=== PATIENT | male | born 1955 | race African-American/Black ===

== ENCOUNTER → 2017-08-09 | Outpatient (CLI) | payer OTHER ==
--- NOTE | 2017-08-09 14:34 | KCIC ---
Thoracic spine, 3 views, 08/09/2017: HISTORY: Worsening upper back pain The thoracic vertebral heights are well-maintained. There are moderate scattered marginal spurs. The paraspinous soft tissues are unremarkable. IMPRESSION: 1. Moderate marginal spurring. 2. No acute bony abnormality is detected. Electronically signed by: Nitesh Lizama MD (08/09/2017 2:30 PM) [facility]
--- NOTE | 2017-08-09 14:36 | KCIC ---
Cervical spine, 5 views, 08/09/2017: HISTORY: Pain There is mild to moderate marginal spurring in the lower cervical spine. There are moderate degenerative changes involving multiple facet joints bilaterally. There appears to be fusion of several of the facet joints on the upper left. There is mild foraminal narrowing at multiple levels bilaterally due to the spurring. No fracture or dislocation is identified. No prevertebral soft tissue swelling is evident. IMPRESSION: 1. Moderate multilevel degenerative change as described above. MR scanning may be useful for further evaluation, if clinically indicated. 2. No acute bony abnormality is detected. Electronically signed by: Nitesh Lizama MD (08/09/2017 2:32 PM) [facility]
== END | disposition home or self-care (01) ==
LOC: KCIC 13:50
PROVIDERS: ATTEND Internal Medicine
DX: M46.04 Spinal enthesopathy, thoracic region (principal); M47.892 Other spondylosis, cervical region
CPT/HCPCS: 72050; 72072

== ENCOUNTER → 2017-08-22 | Outpatient (CLI) | payer OTHER ==
--- NOTE | 2017-08-22 14:21 | RAD ---
EXAM: Renal sonogram. HISTORY: Polyuria. TECHNIQUE: Sonographic imaging of the kidneys and bladder was performed. COMPARISON: None. FINDINGS: The right kidney measures 12.0 cm bunh-qe-oopu and the left kidney measures 12.4 cm twyl-uk-yhog. There is a 2.0 cm simple appearing cyst within the lower pole of the left kidney. No solid lesion is seen. There is no hydronephrosis. There is mild prostatomegaly, with a volume of 135 cc. The post void bladder residual 17 cc. IMPRESSION: 1. 2.0 cm left renal cyst. 2. Mild prostatomegaly. 3. Minimal post void bladder residual.
== END | disposition home or self-care (01) ==
LOC: US 13:35
PROVIDERS: ATTEND Internal Medicine
DX: N41.0 Acute prostatitis (principal); R35.8 Other polyuria; N28.1 Cyst of kidney, acquired; N40.0 Benign prostatic hyperplasia without lower urinary tract symptoms; N32.9 Bladder disorder, unspecified
CPT/HCPCS: 76770

== ENCOUNTER → 2018-04-30 | Outpatient (CLI) | payer OTHER | END | disposition home or self-care (01) | LOC: RAD 16:44 | DX: M16.12 Unilateral primary osteoarthritis, left hip (principal); M47.897 Other spondylosis, lumbosacral region | CPT/HCPCS: 72100; 73502 ==

== ENCOUNTER → 2018-06-06 | Outpatient (CLI) | payer OTHER | END | disposition home or self-care (01) | LOC: KCIC 08:57 | DX: M25.561 Pain in right knee (principal); M25.562 Pain in left knee | CPT/HCPCS: 73562 ==

== ENCOUNTER → 2020-11-23 | Outpatient (CLI) | payer MEDICARE, OTHER ==
--- NOTE | 2020-11-23 17:29 | KCIC ---
EXAM: Chest, 2 views. HISTORY: Cough. Dyspnea. COMPARISON: None. FINDINGS: 2 views of the chest are obtained. There is no infiltrate, pleural effusion or pneumothorax . The heart is normal in size. IMPRESSION: No acute pulmonary finding. Electronically signed by: Tanisha Hinds MD (11/23/2020 5:27 PM) [id number]
== END ==
LOC: KCIC 15:15
PROVIDERS: ATTEND Internal Medicine
DX: R05 Cough (principal); R06.00 Dyspnea, unspecified; R07.9 Chest pain, unspecified
CPT/HCPCS: 71046

== ENCOUNTER → 2021-04-02 | Outpatient (CLI) | payer MEDICARE ==
--- NOTE | 2021-04-02 15:52 | KCIC ---
Chest, PA and Lateral: Technique: PA and lateral views of the chest were obtained. History: Exacerbation of asthma. Comparison: None. Findings: The cardiomediastinal silhouette grossly appears unremarkable. Mild bibasilar lung airspace opacities . IMPRESSION: Mild bibasilar lung atelectasis or infiltrates. Electronically signed by: Ric Bear MD (04/02/2021 3:50 PM) [id number]
== END ==
LOC: KCIC 13:05
PROVIDERS: ATTEND Internal Medicine
DX: J45.901 Unspecified asthma with (acute) exacerbation (principal)
CPT/HCPCS: 71046

== ENCOUNTER → 2021-04-23 | Outpatient (CLI) | payer MEDICARE ==
--- NOTE | 2021-04-23 12:40 | CARD ---
MR#: [id number] Date of Study: 04/23/2021 Ordering Physician: ANJEL BAILEY, Referring Physician: ANJEL BAILEY, Tech: Kay Moser [facility] [place] APPROVED REPORT EXAM: Two-dimensional and M-mode echocardiogram with Doppler and color Doppler. Other Information Quality : GoodHR: 56bpm Rhythm : NSR INDICATION Dyspnea 2D DIMENSIONS RVDd3.7 (2.9-3.5cm)Left Atrium(2D)3.6 (1.6-4.0cm) IVSd0.8 (0.7-1.1cm)Aortic Root(2D)4.1 (2.0-3.7cm) LVDd4.9 (3.9-5.9cm)LVOT Diameter2.3 (1.8-2.4cm) PWd0.8 (0.7-1.1cm)LVDs3.2 (2.5-4.0cm) FS (%) 34.3 %SV72.5 ml LVEF(%)63.1 (>50%) Aortic Valve AoV Peak Adan.146.2cm/sAoV VTI31.6cm AO Peak GR.8.5mmHgAO Mean GR.4mmHg AI P 1/2 [id number] Mitral Valve MV E Dzicfisq21.6cm/sMV DECEL [id number] MV A Hopstbdk58.9cm/sE/A Ratio1.2 Tricuspid Valve TR P. Ggbxpvog654kp/sTR Peak Gr.23mmHg Pulmonary Vein S1 Drbuwvun51.9cm/sD2 Isqmmtep32.1cm/s PVa [id number] LEFT VENTRICLE The left ventricle is normal size. There is normal left ventricular wall thickness. The left ventricu lar systolic function is normal and the ejection fraction is within normal range. Estimated ejection fraction 60-65%. There is normal LV segmental wall motion. Transmitral Doppler flow pattern is Grade I-abnormal relaxation pattern. RIGHT VENTRICLE The right ventricle is normal size. There is normal right ventricular wall thickness. The right ventr icular systolic function is normal. ATRIA The left atrium size is normal. The right atrium size is normal. The interatrial septum is intact wit h no evidence for an atrial septal defect or patent foramen ovale as noted on 2-D or Doppler imaging. AORTIC VALVE The aortic valve is normal in structure and function. Doppler and Color Flow revealed moderate to sev ere aortic regurgitation. There is no significant aortic valvular stenosis. MITRAL VALVE The mitral valve is normal in structure and function. There is no evidence of mitral valve prolapse. There is no mitral valve stenosis. Doppler and Color-flow revealed mild mitral regurgitation. TRICUSPID VALVE The tricuspid valve is normal in structure and function. Doppler and Color Flow revealed mild tricusp id regurgitation. Estimated PAP 22 mmHg. There is no tricuspid valve stenosis. PULMONIC VALVE The pulmonary valve is normal in structure and function. Doppler and Color Flow revealed mild pulmoni c valvular regurgitation. There is no pulmonic valvular stenosis. GREAT VESSELS The aortic root is mildly enlarged. The IVC is normal in size and collapses >50% with inspiration. PERICARDIAL EFFUSION There is no evidence of significant pericardial effusion. Critical Notification Critical Value: No <Conclusion> The left ventricular systolic function is normal and the ejection fraction is within normal range. E stimated ejection fraction 60-65%. There is normal LV segmental wall motion. Doppler and Color Flow revealed moderate to severe aortic regurgitation. The aortic root is mildly enlarged. Signed by : Anjel Bailey, Electronically Approved : 04/23/2021 12:40:13
== END ==
LOC: ECHO 10:19
PROVIDERS: ATTEND Internal Medicine Cardiovascular Disease
DX: I08.8 Other rheumatic multiple valve diseases (principal)
CPT/HCPCS: 93306

== ENCOUNTER → 2021-05-06 | Day surgery (SDC) | payer MEDICARE ==
[2021-05-06] VITALS (11 sets, daily range): BP systolic 107–138; BP diastolic 71–82
[~2021-05-06] VITALS: Ht 188 cm; Wt 92.7 kg
[~2021-05-06] MED LIST: BENZOCAINE ONE 20% MUCOSAL SPRAY.; BENZOCAINE ONE 20% MUCOSAL SPRAY. MM; CONTRAST GIVEN. MC PRN; HEPARIN for ARTERIAL LINE 1,500 ML ONE; HEPARIN for IV BOLUS 10,000 UNIT/10 ML VIAL. IART ONE; HEPARIN for IV BOLUS 10,000 UNIT/10 ML VIAL. IV ONE; HEPARIN for IV BOLUS 10,000 UNIT/10 ML VIAL. ONE; HYDROmorphone 2 MG/ML VIAL IVP PRN; IOHEXOL 300 MG/ML 100ML VIAL. IART ONE; IOHEXOL 300 MG/ML 100ML VIAL. ONE; IV RINGERS,LACTATED 1000ML 1,000 ML IV SCH; KETAMINE HCL IN NACL, ISO-OSM 50 MG/5 ML SYRINGE ONE; LIDOCAINE 1% PF 2 ML VIAL. INJ ONE; LIDOCAINE 1% PF 2 ML VIAL. ONE; LIDOCAINE 2% JELLY 6ML IN APPLICATOR. MM ONE; LIDOCAINE 2% PF 5 ML VIAL. ONE; LIDOCAINE 2% TOPICAL JELLY 30GM TUBE. TP ONE; LIDOCAINE 2% VISCOUS 15 ML SOLUTION. ONE; LIDOCAINE 2% VISCOUS 15 ML SOLUTION. SWSW ONE; MIDAZOLAM HCL/PF 2 MG/2 ML VIAL. IV ONE; MIDAZOLAM HCL/PF 2 MG/2 ML VIAL. ONE; MORPHINE SULFATE 2 MG/ML INJ. IVP PRN; NITROGLYCERIN 200 MCG/2 ML SYRINGE FOR CATH/VASC LAB. IART ONE; NITROGLYCERIN 200 MCG/2 ML SYRINGE FOR CATH/VASC LAB. ONE; PROCHLORPERAZINE 10 MG/2 ML VIAL. IVP PRN; PROPOFOL 10 MG/ML (20ML) VIAL. IV ONE; VERAPAMIL 5 MG/2 ML VIAL. IART ONE; VERAPAMIL 5 MG/2 ML VIAL. ONE; fentaNYL PF VIAL 100 MCG/2 ML VIAL IV ONE; fentaNYL PF VIAL 100 MCG/2 ML VIAL IVP PRN; fentaNYL PF VIAL 100 MCG/2 ML VIAL ONE
[2021-05-06 07:44] LABS: CALCIUM 8.8 mg/dL (8.5-10.1); CREATININE 1.1 mg/dL (0.7-1.3); GFR 80.8; POTASSIUM 3.8 mmol/L (3.5-5.1)
[2021-05-06 08:00] LABS: PROTHROMBIN TIME PATIENT 13.7 SEC (11.7-14.0)
[2021-05-06 08:07] LABS: HEMATOCRIT 36.2 % (39.0-53.0); HEMOGLOBIN 12.5 g/dL (13.0-17.5); RED BLOOD COUNT 3.77 x10^6/uL (4.30-5.70); RED CELL DISTRIBUTION WIDTH 13.9 % (11.5-14.5); WHITE BLOOD COUNT 4.2 x10^3/uL (4.0-11.0)
--- NOTE | 2021-05-06 08:41 | PDOC ---
MODERATE SEDATION ASSESSMENT RISKS/ALTERNATIVES Risks/Alternatives Risks and alternatives of this type of sedation and procedure discussed with: RISK/ALTERNATIVES: Patient H & P ON CHART H & P H & P on chart and reviewed for co-morbid conditions and appropriate labs. H&P ON CHART: Yes STATUS PREG STATUS ASSESSED: N/A MEDS/ALLERGIES REVIEWED Meds/Allergies Reviewed Medications and Allergies including time and route of recently administered narcotics and sedatives. MEDS/ALLERGIES REVIEWED: Yes ASA RATING ASA RATING: II AIRWAY ASSESSMENT Airway Assessment Airway patency, oral function limitations, presence of caps, crowns, dentures, partials, and ability to extend neck assessed. AIRWAY ASSESSMENT: Yes MALLAMPATI SCORE MALLAMPATI SCORE: II PRE-SEDATION ASSESSMENT PRE-SEDATION ASSESSMENT: Yes KORIN BAILEY MD May 06, 2021 08:41
--- NOTE | 2021-05-06 10:56 | CARD ---
MR#: [id number] Date of Study: 05/06/2021 Ordering Physician: KORIN BAILEY, Referring Physician: KORIN BAILEY, Tech: RT Pablo(R) APPROVED REPORT Technologist: RT Pablo(R) Nurse: Diya Bautista RN Procedure(s) performed: FLUORO TIME 4.9 MIN. DOSE [id number] CONTRAST 134ML MODERATE SEDATION 30MIN. LHC, Coronary angiography, iFR of the LAD, Aortogram [facility] Clinical Frailty Scale [facility] Clinical Frailty Scale: Managing Well Heart Failure Heart Failure: Yes If Yes, Newly Diagnosed: Yes If Yes, HF Type: Diastolic If Yes, NYHA Class: Class II PROCEDURE NARRATIVE Clinical information: 66-year-old male who presents to the [facility] for elective transesophageal echocardiogram, left heart catheterization in the setting of exertional dyspnea and moderate to severe aortic insufficiency not ed on surface echocardiogram. He his symptoms initially began approximately 2 days after his second Covid vaccine where he noted respiratory symptoms. He was ultimately treated with 2 rounds of steroi d Dosepak and inhalers which did not improve his symptoms. He was seen by the pulmonary service and had a negative CT angiography. He was subsequently referred to us for an echocardiogram revealed mod erate and in some views severe aortic insufficiency although his pressure half-time and pulse pressur es were within normal limits. Due to persistent exertional dyspnea a decision was made to proceed wi cardiac catheterization given significant family history. Procedure details: Please see separate ANANT report for full ANANT details. After appropriate informed consent the right wr ist was prepped and draped in usual sterile fashion. Under 1% lidocaine local anesthesia a 6 [place] introducer sheath was placed in the right radial artery via the Seldinger technique. Next diagnostic angiography was performed with a 6 [place] TIG catheter. Left ventricular end-diastolic pressure was obtained with a pigtail catheter and a pullback was performed. Aortography was performed. Findings: Aorta 120/80 LVEDP 9 mmHg No significant pullback gradient across aortic valve. Aortogram: Mild to moderate aortic insufficiency Coronary angiography: Left main is a large-caliber vessel with normal angiographic appearance LAD is a large-caliber vessel with a proximal eccentric 50% stenosis. Ramus is a moderate caliber vessel with proximal 30% stenosis Left circumflex is a moderate caliber vessel with mild luminal irregularities RCA is a small to moderate caliber vessel with mild luminal irregularities Interventional technique: Given the moderate eccentric stenosis involving the large caliber LAD a decision was made to perform physiologic testing. Heparin was used for anticoagulation. Through a 6 [place] EBU 3.75 guide cathet er a 0.014 inch pressure wire was advanced to the distal LAD after appropriate normalization and intr acoronary glycerin administration. And IFR value of 0.99 was noted. Pullback was unremarkable. Fin al post FFR angiography did not reveal any guide or wire related complications. At case completion the right radial sheath was removed and hemostasis was achieved with a tremor radi al band inflated to 12 mL. The patient tolerated the procedure well. No acute complications. Conclusion 1. Normal left ventricular filling pressures 2. Mild to moderate aortic insufficiency by conventional aortography 3. One-vessel coronary artery disease with negative IFR of the LAD. Recommendations 1. The patient does not have any clear evidence of obstructive coronary disease and his valvular dis ease appears to be only mild to moderate in degree. Given his dyspnea differential includes myocardi tis given that his symptoms started after the vaccine versus persistent involvement due to the aortic valvular insufficiency which is more moderate to severe based on visual estimation on echocardiogram . 2. We will plan for referral to [facility] for a cardiac MRI to rule out myocarditis and cons ider referral to valve clinic for second opinion regarding the degree of his aortic insufficiency and correlation to his symptoms. 3. I did discuss with the patient and his that his symptoms may be completely unrelated to card iac process and may be related to sinusitis and postnasal drip as his symptoms mostly occur at night when he lays down. Signed by : Korin Bailey, Electronically Approved : 05/06/2021 10:56:15
--- NOTE | 2021-05-06 11:14 | CARD ---
MR#: [id number] Date of Study: 05/06/2021 Ordering Physician: KORIN HUDSON, Referring Physician: KORIN HUDSON, Tech: Lisset Kidd, [facility] APPROVED REPORT EXAM: Two-dimensional and M-mode echocardiogram with Doppler and color Doppler. INDICATION Aortic Valve Disease Aortic Valve AI P 1/2 [id number] Tricuspid Valve TR P. [id number]/sTR Peak Gr.24mmHg Reason For Test : Rule out Intracardiac Thrombus. PROCEDURE After obtaining informed consent, patient underwent transesophageal echo in the [facility]. Type of Sedation : General Anesthesia Sedation was administered by anesthesia service. . Transesophageal probe was inserted and advanced into esophagus by Naun Hudson MD. The ANANT was performed without complications. Throughout the procedure, the blood pressure, pulse oximetry, cardiac rhythm, and rate were monitored . The patient tolerated the procedure without adverse effects. Recovery from general anesthesia was une ventful and vital signs were stable. LEFT VENTRICLE The left ventricle is normal size. There is normal left ventricular wall thickness. The left ventricu lar systolic function is normal and the ejection fraction is within normal range. The Ejection Fracti on is 50-55%. There is normal LV segmental wall motion. The left ventricular diastolic function and f illing is normal for age. No left ventricle thrombus noted on this study. There is no ventricular sep chet defect visualized. RIGHT VENTRICLE The right ventricle is normal size. There is normal right ventricular wall thickness. The right ventr icular systolic function is normal. ATRIA The left atrium size is normal. The right atrium size is normal. The interatrial septum is intact wit h no evidence for an atrial septal defect or patent foramen ovale as noted on 2-D or Doppler imaging. There is no thrombus noted in the left atrial appendage. AORTIC VALVE The aortic valve is trileaflet with near normal coaptation. The left coronary cusp appears to be fria ble. Doppler and Color Flow revealed moderate aortic insufficiency visually and mild by doppler crite claire. (No evidence of aortic flow reversal on surface echo). PHT 555 There is no significant aortic va lvular stenosis. MITRAL VALVE The mitral valve is normal in structure and function. There is no evidence of mitral valve prolapse. There is no mitral valve stenosis. Doppler and Color-flow revealed trace to mild mitral regurgitation . TRICUSPID VALVE The tricuspid valve is normal in structure and function. Doppler and Color Flow revealed trace to mil d tricuspid regurgitation. There is no tricuspid valve stenosis. PULMONIC VALVE The pulmonary valve is normal in structure and function. Doppler and Color Flow revealed trace pulmon ic valvular regurgitation. There is no pulmonic valvular stenosis. GREAT VESSELS The aortic root is mildly enlarged. The ascending aorta is normal in size. The IVC is normal in size and collapses >50% with inspiration. PERICARDIAL EFFUSION There is no pleural effusion. Critical Notification Critical Value: No <Conclusion> The left ventricular systolic function is normal and the ejection fraction is within normal range. Th e Ejection Fraction is 50-55%. There is normal LV segmental wall motion. There is no thrombus noted in the left atrial appendage. The aortic valve is trileaflet with near normal coaptation. The left coronary cusp appears to be fria ble. Doppler and Color Flow revealed moderate to severe aortic insufficiency visually and moderate by obje ctive criteria. (No evidence of aortic flow reversal on surface echo, PHT 555 and normal pulse pressu re) Signed by : Korin Hudson, Electronically Approved : 05/06/2021 11:13:47
== END | disposition home or self-care (01) ==
LOC: CCL 06:51
PROVIDERS: ATTEND Internal Medicine Cardiovascular Disease
DX: I35.1 Nonrheumatic aortic (valve) insufficiency (principal); R06.09 Other forms of dyspnea; Z79.899 Other long term (current) drug therapy; Z98.890 Other specified postprocedural states
CPT/HCPCS: 36415; 76376; 80048; 85027; 85610; 85651; 86140; 93312; 93320; 93325; 93458; 93567; 93571; 99152; 99153; C1769; C1887; C1894; J1644; J2250; J2704; J3010; J3490; Q9967

== ENCOUNTER → 2021-08-26 | Outpatient (CLI) | payer MEDICARE ==
[2021-05-06 12:00] VITALS: BP 107/74
--- NOTE | 2021-08-27 11:50 | KCIC ---
EXAM: XR THORACIC SPINE 3VIEWS, XR CERVICAL SPINE 2-3V 08/26/2021 3:30 PM CLINICAL INDICATION: Upper thoracic pain and swelling since open heart surgery 821. COMPARISON: Thoracic spine radiograph 08/09/2017 TECHNIQUE: 4 views of the cervical spine and 3 views of the thoracic spine. FINDINGS: Cervical spine: No acute fracture. Alignment is normal. There is mild disc space narrowing and small bridging anterior osteophytes throughout the cervical spine. Mild facet arthrosis. There is straighte john of lordosis with slight kyphosis at C6-C7. Ossification along the nuchal ligament is unchanged. Prevertebral soft tissue is normal. Median sternotomy wires are noted. Thoracic spine: There is no acute fracture. Alignment is normal. There is mild disc space narrowing a nd small osteophytes at several levels. There are median sternotomy wires. A prosthetic heart valve i s noted. IMPRESSION: 1. No acute osseous abnormality of the cervical or thoracic spine. 2. Mild degenerative disc disease in the cervical spine. Electronically signed by: Ivonne Correa MD (08/27/2021 11:47 AM) [id number]
== END ==
LOC: KCIC 15:22
PROVIDERS: ATTEND Internal Medicine
DX: M48.02 Spinal stenosis, cervical region (principal); M50.30 Other cervical disc degeneration, unspecified cervical region; M25.78 Osteophyte, vertebrae; M40.202 Unspecified kyphosis, cervical region; Z95.2 Presence of prosthetic heart valve
CPT/HCPCS: 72040; 72072